=== PATIENT | male | born 2000 | race Two or more races ===

== ENCOUNTER 2022-12-04 14:54 | Outpatient (AMB) | payer OTHER, SELFPAY ==
--- NOTE | 2022-12-04 14:56 | A.OFFPC_ITS ---
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 Accompanied by: Mother Allergies No Known Allergies Allergy (Verified 12/04/22 15:01) Tobacco use date assessed: 12/04/22 Dental Screening Dental Screen Date: 12/04/22 Did you have a dental visit in the last 12 months?: Yes Did you have a dental problem in the last 6 months where you did not have access to dental care?: No Was dental information given to patient?: Patient has dentist HPI 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 Pt uses ibuprofen and ice/heat for relief. Hypersomnolence L3 region back pain. B/L shoulder pain PMHx: Back pain, knee pain, Rib pain SurgHx: No surgeries FHx: Dad: HTN, HLD. Mom: Healthy. Sister: DM. SocHx: No cigarettes. EtOH none. MJ daily. No other drugs. PFSH Surgical History (Updated 12/04/22 @ 15:11 by John Eid CMA) No pertinent past surgical history Family History (Updated 12/04/22 @ 15:17 by John Eid CMA) Father High blood pressure High cholesterol Social History Housing: House Alcohol intake: never Patient Tobacco Use Status: Never used Tobacco e-Cigarette/Vaping Use: Never Used Substance Use Type: Marijuana service: No Current occupational status: unemployed Current occupational exposures/hazards: No Cognitive needs: No Hearing needs: No Vision needs: No Questionnaire PHQ-9 Over the last 2 weeks, how often have you been bothered by any of the following problems? 1. Little interest or pleasure in doing things: several days 2. Feeling down, depressed, or hopeless: several days 3. Trouble falling or staying asleep, or sleeping too much: several days 4. Feeling tired or having little energy: not at all 5. Poor appetite or overeating: several days 6. Feeling bad about yourself - or that you are a failure or have let yourself or your family down: not at all 7. Trouble concentrating on things, such as reading the newspaper or watching television: not at all 8. Moving or speaking so slowly that other people could have noticed. Or the opposite - being so fidgety or restless that you have been moving around a lot more than usual: several days 9. Thoughts that you would be better off or of hurting yourself in some way: not at all Total score: 5 08317 - PHQ-9 Billing: Yes Source: Developed by Drs. Noe Fernando, Siena Granados, Gregory Pierson and colleagues, with an educational lacy from [employer]. Thrive Questionnaire Date Thrive assessed: 12/04/22 I am a: Patient What is your living situation today?: I have a steady place to live Within the past 12 months, did the food you bought not last and you didn't have the money to get more?: Never true Within the past 12 months, did you worry whether your food would run out before you got money to buy more?: Never true Do you have trouble paying for medicines?: No Do you have trouble getting transportation to medical appointments?: No Do you have trouble paying your heating and electricity bill?: No Do you have trouble taking care of your child, family member or friend?: No Do you have trouble with day-to-day activities such as bathing, preparing meals, shopping, managing finances, etc.?: No Are you currently unemployed and looking for a job?: Yes Are you interested in more education?: No Please select the resources that you would like help with: None Currently or been in a relationship where the following occur: no concerns reported SAM-7 AMB Questionnaire SAM-7 Date SAM - 7 assessed: 12/04/22 Feeling nervous, anxious, or on edge: 1 = Several days Not being able to stop or control worryin = Several days Worrying too much about different things: 1 = Several days Trouble relaxin = Nearly every day Being so restless that it is hard to sit still: 1 = Several days Becoming easily annoyed or irritable: 3 = Nearly every day Feeling afraid as if something awful might happen: 3 = Nearly every day Total SAM-7 score (0-4 normal; 5-9 mild; 10-14 moderate; 15-21 severe): 13 Source: Developed by Drs. Noe Fernando, Siena Granados, Gregory Pierson and colleagues, with an educational lacy from [employer]. SAM-7 Assessment Billing ASM-7 Assessment Tool: SAM-7 Assessment 48699 Review of Systems Const Denies chills, Denies fatigue, Denies fever(s), Denies headache(s) and Denies weakness ENT Denies dizziness and Denies headache(s) Card Denies chest pain, Denies lightheadedness, Denies dyspnea and Denies other (Palpitations) Resp Denies cough, Denies dyspnea, Denies wheezing and Denies other ( shortness of breath) Musc Details: L rib pain B/L shoulder pain Reports back pain, Denies numbness and Denies tingling Neuro Denies dizziness, Denies headache(s), Denies numbness, Denies tingling, Denies paresthesias and Denies weakness Psych Denies anxiety and Denies depression Endo Denies fatigue Aller/Immun Denies wheezing Physical exam (Primary Care) Vital Signs: Last Vital Signs Pulse 68 12/04/22 15:00 BP 118/62 12/04/22 15:00 Pulse Ox 99 12/04/22 15:00 BMI result Body Mass Index 29.7 Tobacco/Smoking Status: Tobacco use Status Tobacco use date assessed 12/04/22 12/04/22 15:05 Patient Tobacco Use Status Never used Tobacco 12/04/22 15:05 e-Cigarette/Vaping Use Never Used 12/04/22 15:05 PHQ-9: PHQ-9 Score PHQ-9: Total score 5 12/04/22 15:46 Thrive Assessment: Date of Thrive Assessment Date Thrive assessed 12/04/22 12/04/22 15:19 Currently or been in a relationship where the following occur: no concerns reported Const General: no acute distress and well developed Nutritional Appearance: well nourished Orientation/consciousness: patient oriented x3 HENMT Head: Yes normocephalic and Yes atraumatic Eyes General: appearance normal, both eyes and all related structures Pupils: Equal, round and reactive pupils present EOM: EOMs intact bilaterally Resp Effort & Inspection: normal respiratory effort Auscultation: clear to auscultation bilaterally Cardio Rate: regular rate Rhythm: regular rhythm Heart sounds: S1 normal heart sound present, S2 normal heart sound present, no gallops, no murmurs and no rubs Neuro General: patient oriented x3 and gait normal Cranial nerves: Yes Equal, round and reactive pupils present Psych Affect: normal affect Assessment and Plan Assessment & Plan (1) Back pain: Code(s): M54.9 - Dorsalgia, unspecified Plan: Midback including left subscapularis and low back pain. Use ice/heat and meloxicam Start physical therapy (2) Rib pain: Code(s): R07.81 - Pleurodynia Plan: Left lower rib pain Likely recurrent muscle strain Can use ice and heat and NSAIDs (3) Hypersomnolence: Code(s): G47.10 - Hypersomnia, unspecified Plan: Referred to Sleep Medicine (4) Knee pain: Code(s): M25.569 - Pain in unspecified knee Plan: Bilateral patellar pain and infrapatellar pain and swelling with some crepitus Likely patellar tendinitis Use ice and NSAIDs. Start physical therapy (5) Laboratory exam ordered as part of routine general medical examination: Code(s): Z00.00 - Encounter for general adult medical examination without abnormal findings Plan: Check labs (6) Bilateral shoulder pain: Code(s): M25.511 - Pain in right shoulder; M25.512 - Pain in left shoulder Plan Multiple joints with pain. Check inflammatory markers Orders: Orders PT Evaluation and Treatment Today M25.511 - Pain in right shoulder, M25.512 - Pain in left shoulder, M25.569 - Pain in unspecified knee, M54.9 - Dorsalgia, unspecified Comprehensive [place]. Panel Fast Today M54.9 - Dorsalgia, unspecified, Z00.00 - Encounter for general adult medical examination without abnormal findings Complete Blood Count Auto Diff Today M54.9 - Dorsalgia, unspecified, Z00.00 - Encounter for general adult medical examination without abnormal findings Lipid Panel Today M54.9 - Dorsalgia, unspecified, Z00.00 - Encounter for general adult medical examination without abnormal findings TSH reflex Free T4 Today M54.9 - Dorsalgia, unspecified, Z00.00 - Encounter for general adult medical examination without abnormal findings UA and rflx microscopic Today M54.9 - Dorsalgia, unspecified, Z00.00 - Encounter for general adult medical examination without abnormal findings CRP High Sensitivity Today M54.9 - Dorsalgia, unspecified Rheumatoid Factor Today M54.9 - Dorsalgia, unspecified Erythrocyte Sedimentation Rate Today M54.9 - Dorsalgia, unspecified Referrals Sleep Medicine Referral G47.10 - Hypersomnia, unspecified Medications: New meloxicam 15 mg PO DAILY 30 tabs 2RF 30 days Coding Level of Care Code New Pt Level 4 (37001) Diagnoses Back pain M54.9 Rib pain R07.81 Hypersomnolence G47.10 Knee pain M25.569 Laboratory exam ordered as part of routine general medical examination Z00.00 Bilateral shoulder pain M25.511; M25.512 Additional Codes SAM-7 Assessment Billing - SAM-7 Assessment Tool: SAM-7 Assessment 88730 ([id number])
[2022-12-04 15:00] VITALS: BP 118/62; PULSE 68; O2SAT 99; BMI 29.7
== END 2022-12-04 16:09 | disposition home or self-care (01) ==
PROVIDERS: Visit Provider Family Medicine
DX: M54.9 Dorsalgia, unspecified (principal); R07.81 Pleurodynia; G47.10 Hypersomnia, unspecified; M25.569 Pain in unspecified knee; Z00.00 Encounter for general adult medical examination without abnormal findings; M25.511 Pain in right shoulder; M25.512 Pain in left shoulder
CPT/HCPCS: 99204

== ENCOUNTER 2023-02-21 08:09 | Outpatient (AMB) | payer OTHER, SELFPAY ==
--- NOTE | 2023-02-21 08:25 | A.OFFVIS_ITS ---
Intake Vital Signs 02/21/23 08:28 Height 5 ft 9.5 in Weight 202 lb 4 oz BMI 29.4 BP 102/52 L Blood Pressure Location Rt brachial Position Sitting Pulse 57 Pulse Source Pulse Oximeter Pulse Oximetry (%) 99 Oxygen Delivery Method Room Air Intake Visit Reasons: INP-Hypersomnia - LVM Intake Note: NPV for Hypersomnia Client Services Assistant Required: No Allergies No Known Allergies Allergy (Verified 02/21/23 08:26) HPI HPI Comments 2 History of Present Illness Details 22 y/o male patient presents for new in- person visit for sleep consultation. Pt reports hypersomnia. He sleeps 8-9 hrs at night but still tired during the day and takes a nap 4-5 hrs a day. Pt states that he stays up until late, midnight to 1 am and then sleep until 8-9 am. He usually takes a nap 3-4 pm for 4-5 hrs a day. Denies difficulty staying sleep. He plays basketball in the morning, and playing video after nap until late night. Sleep questionnaire: Have you ever been diagnosed with a sleep disorder? No. Have you ever had a sleep study in the past? No. Have you ever been treated for a sleep disorder? No. Do you take medications for a sleep disorder? No, tried melatonin 5 mg, it helped a little bit to sleep earlier. Do you snore? Yes. Do you wake up gasping at night? No. Do you have episodes of apneas? No. If yes, are they witnessed? No. Do you have episodes of nocturnal chest pain or dyspnea? No. Do you have difficulty initiating sleep? Yes. Do you have difficulty maintaining sleep? Yes. Do you wake up tired? Yes. Do you have headaches upon awakening? No. Do you wake up with dry mouth or throat? Yes, sometimes. Do you have GERD? No. Do you have nocturia? Yes. Do you have nocturnal leg cramps? Yes. Do you have symptoms of restless legs? Yes. Do you act out your dreams? No. Sleep hygiene questionnaire: What is your usual sleep routine? Usual bedtime is at 9-9:30 pm; Usual wake up time is at 8-9 hrs. . Do you take naps? 3-4 pm take Is your sleep environment cool, dark, and quiet? Yes. Do you exercise? Yes, playing basketball. Do you take caffeine or other stimulants? Yes, ice coffee around 1 pm. Do you use electronics in bed? Yes, video game and playing with phone. What is your work schedule? N/A. Hypersomnolence questionnaire: Do you have daytime tiredness or fatigue? Yes. Do you easily fall asleep when inactive? No. Have you ever had episodes of sudden weakness? No. Have you ever had episodes of sudden weakness associated with strong emotions? No. PFSH Surgical History (Updated 12/04/22 @ 15:11 by John Eid CMA) No pertinent past surgical history Family History (Updated 12/04/22 @ 15:17 by John Eid CMA) Father High blood pressure High cholesterol Social History (Updated 02/21/23 @ 08:27 by Angeline Vincent [facility]) Housing: House Alcohol intake: never Patient Tobacco Use Status: Never used Tobacco e-Cigarette/Vaping Use: Never Used Substance Use Type: Marijuana service: No Current occupational status: unemployed Current occupational exposures/hazards: No Cognitive needs: No Hearing needs: No Vision needs: No Review of Systems Const All systems reviewed & are unremarkable except as noted in HPI and below Physical Exam Vital Signs: Last Vital Signs Pulse 57 02/21/23 08:28 BP 102/52 L 02/21/23 08:28 Pulse Ox 99 02/21/23 08:28 Oxygen Delivery Method Room Air 02/21/23 08:28 BMI result Body Mass Index 29.4 Const General: cooperative and healthy appearing Nutritional Appearance: overweight Orientation/consciousness: patient oriented x3 Neck Neck: Yes normal visual inspection and Yes full ROM Resp Effort & Inspection: normal respiratory effort and able to speak in complete sentences Neuro General: patient oriented x3 and gait normal Motor exam (neuro): 5/5 motor strength present throughout, Pronator motor function not present and no tremor noted Psych Appearance: grossly normal Mental Status: mental status grossly normal Speech and movement: Normal speech and movement present Affect: normal affect Attitude: cooperative Assessment & Plan Assessment & Plan (1) Snoring: Code(s): R06.83 - Snoring (2) Hypersomnolence: Code(s): G47.10 - Hypersomnia, unspecified Plan Pt is advised to undergo home sleep study to assess for sleep apnea. Will f/u with pt after study to discuss results and appropriate treatment option s. Sleep hygiene education provided. Advised patient to limit playing video game before bedtime. Advised patient to limit daytime nap, and try to increase daily activities. Advised patient to write sleep log. Pt to call with any worsening concerns or questions. Orders: Orders RT home sleep study 02/21/23 G47.10 - Hypersomnia, unspecified, R06.83 - Snoring Medications: New melatonin 3 mg PO BEDTIME 30 days PRN 30 tabs 3RF sleep Coding Level of Care Code New Pt Level 3 (14758) Diagnoses Snoring R06.83 Hypersomnolence G47.10
[2023-02-21 08:28] VITALS: BP 102/52; PULSE 57; O2SAT 99; BMI 29.4
== END 2023-02-21 08:54 | disposition home or self-care (01) ==
PROVIDERS: PCP Family Medicine; Visit Provider Nurse Practitioner Family
DX: R06.83 Snoring (principal); G47.10 Hypersomnia, unspecified
CPT/HCPCS: 99203

== ENCOUNTER → 2023-02-21 08:09 | Outpatient (BNVA) | payer OTHER, SELFPAY | PROVIDERS: PCP Family Medicine; Visit Provider Nurse Practitioner Family ==

== ENCOUNTER 2023-09-04 11:00 | Outpatient (RCR) | payer OTHER, SELFPAY ==
--- NOTE | 2023-08-30 12:39 | MHC.PT.EP ---
[facility] [place] Office [place] Office [place] Office [address] Henny Brian [address] [phone] F: [phone] F: [phone] F: [phone] F: [phone] Physical Therapy Plan of Care Date of Evaluation: 08/30/23 Date of Surgery: Diagnosis: dorsalgia, bilateral knee pain, LEFT shoulder/scapular pain (RS) Assessment: Patient is a pleasant 23 y.o. male who is referred to PT by Dr. Wilfred Kelley MD, with Dx of dorsalgia, bilateral knee pain, LEFT shoulder/scapular pain. He presents with muscle imbalances in hips and low back and L shoulder girdle compared to R. Patient impairments include poor posture, poor body mechanics, pes planus, limited ROM, weakness hips, mid back. Patient current functional limitations are prolonged standing, jumping, prolonged sitting, stair use. Patient will benefit from skilled PT to address aforementioned impairments and functional limitations to meet established goals. Frequency and Duration: The patient will be seen 1x/week for 4 weeks Short Term Goals: 2 weeks Patient demonstrates consistency and independence with HEP to self manage symptoms. 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 Patient presents with increased lumbar spine extension 30 degrees to be able to perform prolonged standing for work tasks. Treatment Plan: Modalities to reduce pain, spasms and effusion. Manual therapy to restore motion and function. Therapeutic exercise to improve strength and flexibility. Neuromuscular re-education for posture and balance. Therapeutic activities to return to functional activities of daily living. Electronically signed by: Francisco Cordero, PT, DPT Please sign and return to therapist. Thank you for your referral.
--- NOTE | 2023-10-15 10:48 | MHC.PT.DC ---
[facility] [place] Office [place] Office [place] Office [address] Henny Brian [address] [phone] F: [phone] F: [phone] F: [phone] F: [phone] Physical Therapy Discharge Report Diagnosis: dorsalgia, bilateral knee pain, LEFT shoulder/scapular pain (RS) Date of Surgery: Date of Evaluation: 08/30/23 Date of Discharge: 10/15/23 Treatments to Date: 2 Cancellations to Date: 1 No Shows to Date: 2 Discharge Status: Independent with HEP Visit Non-compliance Discharge Summary: Job was only seen for one visit after evaluation, difficulty determining effectiveness of PT interventions on patient condition due to limited visits. He has HEP. He is discharged for non compliance with attendance. Electronically signed by: Francisco Cordero, PT, DPT Please sign and return to therapist. Thank you for your referral.
== END 2023-10-15 10:49 | disposition home or self-care (01) ==
LOC: HO.PT 11:00
PROVIDERS: PCP Family Medicine; Visit Provider Family Medicine
DX: M54.9 Dorsalgia, unspecified (principal); M25.561 Pain in right knee; M25.562 Pain in left knee; M25.511 Pain in right shoulder; M25.512 Pain in left shoulder
CPT/HCPCS: 97110; 97161

== ENCOUNTER 2023-11-15 13:38 | Outpatient (AMB) | payer OTHER, SELFPAY ==
[2023-11-15 13:49] VITALS: BP 108/68; PULSE 58; RESP 14; TEMP 36.1; O2SAT 98; BMI 29.3
--- NOTE | 2023-11-15 13:49 | A.OFFPC_ITS ---
Vital Signs 11/15/23 13:49 Height 5 ft 9.5 in Weight 201 lb 4 oz BMI 29.3 BP 108/68 Blood Pressure Location Rt brachial Position Sitting Respiration 14 Pulse 58 Pulse Source Pulse Oximeter Temp 97 F Temp Source Temporal Artery Scan Pulse Oximetry (%) 98 Oxygen Delivery Method Room Air Intake Visit Reasons: Disability F/U Intake Note: Patint needs a letter for a court hearing on 01/16/24. 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 Pt notes he has a hearing to assess his disability. Has had complaints of back pain, knee pain, rib pain in the past. He notes he has been to physical therapy 4-5 times which he states did help and his sleep has improved. Had referred him to sleep medicine - he had went once and they had recommended a sleep study as they mentioned he might have sleep apnea. He was unable to f/u with this however due to work. He works at [employer] and has to stand for long periods of time. He notes standing makes his knees worse. [facility] Medical History No pertinent past medical history Surgical History No pertinent past surgical history Family History Father High blood pressure High cholesterol Social History Housing: House Alcohol intake: never Patient Tobacco Use Status: Never used Tobacco e-Cigarette/Vaping Use: Never Used Substance Use Type: Marijuana service: No Current occupational status: employed Current occupation: [employer] Current occupational exposures/hazards: No Cognitive needs: No Hearing needs: No Vision needs: No Questionnaire Thrive Questionnaire Date Thrive assessed: 12/04/22 SAM-7 AMB Questionnaire SAM-7 Date SAM - 7 assessed: 12/04/22 Source: Developed by Drs. Noe Fernando, Siena Granados, Gregory Pierson and colleagues, with an educational lacy from [employer]. Review of Systems Const Denies chills, Denies fatigue, Denies fever(s), Denies headache(s) and Denies weakness ENT Denies dizziness and Denies headache(s) Card Denies dyspnea Resp Denies cough, Denies dyspnea, Denies wheezing and Denies other (shortness of breath) Musc Details: Knee pain Foot pain Reports back pain, Denies numbness and Denies tingling Neuro Denies dizziness, Denies headache(s), Denies numbness, Denies tingling and Denie s weakness Psych Denies anxiety and Denies depression Endo Denies fatigue Aller/Immun Denies wheezing Physical exam (Primary Care) Vital Signs: Last Vital Signs Temp 97 F 11/15/23 13:49 Pulse 58 11/15/23 13:49 Resp 14 11/15/23 13:49 BP 108/68 11/15/23 13:49 Pulse Ox 98 11/15/23 13:49 Oxygen Delivery Method Room Air 11/15/23 13:49 BMI result Body Mass Index 29.3 Tobacco/Smoking Status: Tobacco use Status Tobacco use date assessed 11/15/23 11/15/23 13:57 Patient Tobacco Use Status Never used Tobacco 11/15/23 13:57 e-Cigarette/Vaping Use Never Used 11/15/23 13:57 Thrive Assessment: Date of Thrive Assessment Date Thrive assessed 12/04/22 11/15/23 13:57 Const General: well developed; No acute distress Nutritional Appearance: well nourished Orientation/consciousness: patient oriented x3 HENMT Head: Yes normocephalic and Yes atraumatic Eyes General: appearance normal, both eyes and all related structures Pupils: Equal, round and reactive pupils present EOM: EOMs intact bilaterally Resp Effort & Inspection: normal respiratory effort Neuro General: patient oriented x3 and gait normal Cranial nerves: Yes Equal, round and reactive pupils present Psych Affect: normal affect Assessment and Plan Assessment & Plan (1) Back pain: Code(s): M54.9 - Dorsalgia, unspecified Plan: Patient?has?ongoing?back?and?knee?pain?as?well?as?left?lateral?ankle?pain. Currently?not?in?any?acute?distress.??He?says?this?is?exacerbated?when?he?is?sta nding?or?on?his?feet?all?day?at?work. Had?seen?patient?regarding?these?musculoskeletal?complaints?at?last?visit?which? was?approximately?a?year?ago.??Had?referred?him?to?physical?therapy?which?he?att ended?for?several?sessions?and?did?note?some?improvements. Had?also?ordered?laboratory?workup?including?inflammatory?markers?and?rheumatoid ?factor?but?patient?had?not?gotten?these?drawn.??I?have?encouraged?him?to?get?la bs?drawn?and?I?am?also?ordering?x- rays?of?the?above?affected?joints.??Also?will?have?him?resume?physical?therapy. May?need?referrals?to?a?specialist?or?further?workup. Patient?says?that?he?has?a?court?hearing?regar ding?disability.??Currently?unable?to?make?a?determination?as?he?has?not?yet?com pleted?workup?as?recommended?above. Will?follow-up?with?him?in?3-4?weeks?and?continue?evaluation. Can?trial?naproxen?twice?a?day?for?pain (2) Knee pain: Code(s): M25.569 - Pain in unspecified knee Plan: As?above (3) Foot pain: Code(s): M79.673 - Pain in unspecified foot Plan: Left?foot?and?ankle?pain Workup?as?above (4) Hypersomnolence: Code(s): G47.10 - Hypersomnia, unspecified Plan: Had?seen?patient?regarding?sleep?apnea?and?referred?him?to?Sleep?Medicine?last?y ear. A?sleep?study?was?ordered?but?he?has?not?followed?through?on?this.??Referring?hi m?back?to?Sleep?Medicine. Orders: Orders Comprehensive [place]. Panel Fast Today Z00.00 - Encounter for general adult medical examination without abnormal findings TSH reflex Free T4 Today Z00.00 - Encounter for general adult medical examination without abnormal findings CT NG by PCR Today Z11.3 - Encounter for screening for infections with a predominantly sexual mode of transmission Hepatitis B,C Profile Today Z11.3 - Encounter for screening for infections with a predominantly sexual mode of transmission Syphilis Screen Today Z11.3 - Encounter for screening for infections with a predominantly sexual mode of transmission Rheumatoid Factor Today M54.9 - Dorsalgia, unspecified CRP High Sensitivity Today M54.9 - Dorsalgia, unspecified Lyme IgG/IgM w/reflex to WB Today M54.9 - Dorsalgia, unspecified XR foot LT 2V Today M25.572 - Pain in left ankle and joints of left foot XR knee LT 2V Today M25.561 - Pain in right knee, M25.562 - Pain in left knee Complete Blood Count Auto Diff Today Z00.00 - Encounter for general adult medical examination without abnormal findings Lipid Panel Today Z00.00 - Encounter for general adult medical examination without abnormal findings Microalbumin, Random (w Creat) Today I10 - Essential (primary) hypertension UA and rflx microscopic Today Z00.00 - Encounter for general adult medical examination without abnormal findings HIV Ab/Ag Today Z11.3 - Encounter for screening for infections with a predominantly sexual mode of transmission Erythrocyte Sedimentation Rate Today M54.9 - Dorsalgia, unspecified PT Evaluation and Treatment Today M25.561 - Pain in right knee, M25.562 - Pain in left knee, M25.572 - Pain in left ankle and joints of left foot, M54.9 - Dorsalgia, unspecified XR ankle LT 2V Today M25.572 - Pain in left ankle and joints of left foot XR knee RT 2V Today M25.561 - Pain in right knee, M25.562 - Pain in left knee XR lumbar spine 2-3V Today M54.9 - Dorsalgia, unspecified Referrals Sleep Medicine Referral G47.10 - Hypersomnia, unspecified Medications: New naproxen 500 mg PO BID 30 days PRN 60 tabs 1RF pain Coding Level of Care Code Est Pt Level 4 (87362) Diagnoses Back pain M54.9 Knee pain M25.569 Foot pain M79.673 Hypersomnolence G47.10
== END 2023-11-15 14:54 | disposition home or self-care (01) ==
PROVIDERS: PCP Family Medicine; Visit Provider Family Medicine
DX: M54.9 Dorsalgia, unspecified (principal); M25.569 Pain in unspecified knee; M79.673 Pain in unspecified foot; G47.10 Hypersomnia, unspecified
CPT/HCPCS: 99214

== ENCOUNTER 2023-11-19 10:18 | Outpatient (REF) | payer OTHER, SELFPAY ==
[2023-11-19 10:35] LABS: MANUAL DIFF FLAG NO
[2023-11-19 11:38] LABS: Basophils Absolute Auto 0.1 X10*3/uL (0.0-0.2); Basophils Percent Auto 0.8 % (0-2); Eosinophils Absolute Auto 0.1 X10*3/uL (0.0-0.4); Eosinophils Percent Auto 1.7 % (0-4); Hemoglobin 14.5 g/dl (14.0-18.0); Imm Gran Abs Auto 0.02 X10*3/uL (0.00-0.03); Imm Gran Pct Auto 0.3 % (0.0-0.4); Lymphocytes Absolute Auto 2.5 X10*3/uL (1.2-4.9); Lymphocytes Percent Auto 36.8 % (20-40); Mean Corpuscular Hemoglobin 28.7 pg (27.0-33.0); Mean Corpuscular Volume 87.1 fL (80.0-98.0); Mean Platelet Volume 9.1 fL (9.4-12.4); Monocytes Absolute Auto 0.6 X10*3/uL (0.1-1.2); Neutrophils Absolute Auto 3.4 x10*3/uL (2.0-8.3); Neutrophils Percent Auto 51.4 % (45-73); Platelet Count 313 X10*3/uL (160-400); Red Blood Count 5.05 X10*6/uL (4.60-5.80); Red Cell Distribution Width 13.2 % (11.0-16.0); White Blood Count 6.7 X10*3/uL (4.8-10.8)
[2023-11-19 11:57] LABS: Rheumatoid Factor < 13.0 IU/mL (<15.0)
[2023-11-19 12:18] LABS: Erythrocyte Sedimentation Rate 2 MM/HR (0-15)
[2023-11-19 12:29] LABS: Alanine Aminotransferase 14 U/L (0-40); Albumin Level 4.7 g/dL (3.5-5.0); Alkaline Phosphatase 61 U/L (39-117); Anion Gap 12 (12-20); Aspartate Amino Transferase 16 U/L (5-37); Bilirubin Total 0.7 mg/dL (0.0-1.0); Blood Urea Nitrogen 13 mg/dL (9-16); Carbon Dioxide 27 mmol/L (22-29); Chloride 105 mmol/L (96-108); Cholesterol 195 mg/dL (<200); Estimated Glomerular Filt Rate > 60; Glucose Fasting 94 mg/dL (60-99); HDL Cholesterol 61 mg/dL (>40); LDL Cholesterol Calculated 123 mg/dL (<100); Potassium 3.8 mmol/L (3.3-5.1); Sodium 140 mmol/L (135-145); Total Protein 7.3 g/dL (6.5-8.0); Triglycerides 57 mg/dL (<150)
[2023-11-19 12:34] LABS: Syphilis Screen Nonreactive (Nonreactive)
[2023-11-19 12:36] LABS: HBS Num1 0.51 mIU/mL (0-7.99); HBsAGNum1 0.24 S/CO (0.00-0.99); HIV AB/AG Nonreactive (Nonreactive); HIV Num 1 0.06 S/CO (0.00-0.99); Hepatitis B Core Antibody Nonreactive (Nonreactive); Hepatitis B Surface Antigen Negative (Negative); ~HepC Num1 0.12 S/CO (0.00-0.79); ~Hepatitis B Surface Antibody NONREACTIVE (Nonreactive); ~Hepatitis C Antibody Nonreactive (Nonreactive)
[2023-11-19 13:21] LABS: Appearance Urine Clear; Color Urine Yellow; Glucose Urine UA Negative (Negative); Leukocyte Esterase Urine Negative (Negative); Nitrite Urine Negative (Negative); PH 6.5 (5.0-9.0); Urine Blood Negative (Negative); Urine Ketones Negative (Negative); Urine Protein Negative (Neg-Trace)
[2023-11-19 14:23] LABS: Creatinine Urine 194.57 mg/dL
[2023-11-19 14:27] LABS: CT PCR NOT DETECTED (Not Detect.); NG PCR NOT DETECTED (Not Detect.)
[2023-11-20 09:03] LABS: CRP High Sensitivity <0.2 mg/L
[2023-11-20 11:20] LABS: Lyme Abs Screen <0.90 index
== END 2023-11-19 10:19 | disposition home or self-care (01) ==
LOC: HO.LAB 10:18
PROVIDERS: PCP Family Medicine; Visit Provider Family Medicine
DX: Z00.00 Encounter for general adult medical examination without abnormal findings (principal); G47.10 Hypersomnia, unspecified; M54.9 Dorsalgia, unspecified; I10 Essential (primary) hypertension; Z11.3 Encounter for screening for infections with a predominantly sexual mode of transmission
CPT/HCPCS: 80053; 80061; 81003; 82043; 82570; 84443; 85025; 85652; 86141; 86431; 86617; 86618; 86704; 86706; 86780; 86803; 87340; 87389; 87491; 87591

== ENCOUNTER 2023-11-20 13:38 | Outpatient (AMB) | payer OTHER, SELFPAY ==
--- NOTE | 2023-11-20 13:48 | MHC.OFFVIS ---
Vital Signs 11/20/23 13:49 Height 5 ft 9.5 in Weight 201 lb BMI 29.3 Intake Visit Reasons: Follow Up- Intake Note: Patient presents for follow up hypersomnolence. patient states he's been better sleeping less and less tired Allergies No Known Allergies Allergy (Verified 11/20/23 13:56) Medication List - Last Reconciled 11/20/23 by CORETTA Robles melatonin 3 mg PO BEDTIME PRN 30 days naproxen 500 mg PO BID PRN 30 days HPI Comments Details: 23-yr-old male presents for f/u visit of hypersomnia. Pt was last seen by Barak Sethi NP. Pt denies any significant interval medical changes. He has not done the HST ordered at his last appt. Pt states he is sleeping better. He typically is sleeping from 9pm to 9am, some days may wake up earlier for work. May still need to take a nap on days where he has slept 12 hrs. He notes he has always been more sleepy- could fall asleep in class when in high school. His brother also sleeps a lot. He can dream during a 20 minute nap. He has been told he snores and talks in his sleep. He can feel drained after having strong emotions, but denies weakness or syncope. He is working at [employer]. Plays basketball for exercise. [facility] Medical History No pertinent past medical history Surgical History No pertinent past surgical history Family History Father High blood pressure High cholesterol Social History Housing: House Alcohol intake: never Patient Tobacco Use Status: Never used Tobacco e-Cigarette/Vaping Use: Never Used Substance Use Type: Marijuana service: No Current occupational status: employed Current occupation: [employer] Current occupational exposures/hazards: No Cognitive needs: No Hearing needs: No Vision needs: No Physical Exam Vital Signs: BMI result Body Mass Index 29.3 Const General: cooperative and no acute distress Orientation/consciousness: patient oriented x3 Resp Effort & Inspection: normal respiratory effort and able to speak in complete sentences Neuro General: patient oriented x3 Cranial nerves: Yes CN's II-XII intact bilaterally Cognition (Neuro): normal cognition Psych Appearance: grossly normal Mental Status: mental status grossly normal Speech and movement: Normal speech and movement present Affect: normal affect Attitude: cooperative Assessment & Plan Assessment & Plan (1) Hypersomnolence: Code(s): G47.10 - Hypersomnia, unspecified Category: Medical (2) Snoring: Code(s): R06.83 - Snoring Category: Medical Plan Reviewed recent labs- CBC, CMP, TSH, ESR, CRP- NL. Pt again advised to undergo HST to assess for sleep apnea. If HST is inconclusive, consider in-lab PSG w/ MSLT. f/u upon review of above and in 6 months or sooner. Orders: Orders RT home sleep study Today G47.10 - Hypersomnia, unspecified, R06.83 - Snoring Coding Level of Care Code Est Pt Level 3 (80474) Diagnoses Hypersomnolence G47.10 Snoring R06.83
[2023-11-20 13:49] VITALS: BMI 29.3
== END 2023-11-20 14:48 | disposition home or self-care (01) ==
PROVIDERS: PCP Family Medicine; Visit Provider Nurse Practitioner Family
DX: G47.10 Hypersomnia, unspecified (principal); R06.83 Snoring
CPT/HCPCS: 99213

== ENCOUNTER → 2023-11-20 13:38 | Outpatient (BNVA) | payer OTHER, SELFPAY | PROVIDERS: PCP Family Medicine; Visit Provider Nurse Practitioner Family | DX: G47.10 Hypersomnia, unspecified (principal); R06.83 Snoring | CPT/HCPCS: 99212 ==

== ENCOUNTER 2023-12-18 15:25 | Outpatient (AMB) | payer OTHER, SELFPAY ==
--- NOTE | 2023-12-18 15:40 | A.OFFPC_ITS ---
Vital Signs 12/18/23 15:43 Height 5 ft 11 in Weight 202 lb 2 oz BMI 28.2 BP 100/60 Blood Pressure Location Rt brachial Position Sitting Respiration 12 Pulse 49 L Pulse Source Pulse Oximeter Temp 97.7 F Temp Source Tympanic Pulse Oximetry (%) 99 Oxygen Delivery Method Room Air Intake Visit Reasons: back pain, bilateral knee pain & left ankle pain Intake Note: back pain and knee pain due to prolong standing at work lft ankle pain due to a sprain playing basketball Allergies No Known Allergies Allergy (Verified 12/18/23 15:42) Tobacco use date assessed: 11/15/23 Dental Screening Dental Screen Date: 11/15/23 HPI back pain, bilateral knee pain & left ankle pain HPI Details 23 y/o male presents today to f/u back p ain, bilateral knee pain & L ankle pain. Has trialed physical therapy with no relief. Labs drawn 11/19/23. Reviewed labs with pt. Triglycerides 57. TC 195. LDL 123. HDL 61. Pt reports difficulty concentrating and notes he has a hearing coming up to assess his disability. HPI Comments History of Present Illness Details Documentation assistance for Wilfred Kelley MD, was provided by Daniel Higgins,? Sewing Machine Maintenance Mechanic on 12/18/2023 at 4:01 PM EST. I, Dr. Kelley, have read, observed, and verified documentation. [facility] Medical History No pertinent past medical history Surgical History No pertinent past surgical history Family History Father High blood pressure High cholesterol Social History Housing: House Alcohol intake: never Patient Tobacco Use Status: Never used Tobacco e-Cigarette/Vaping Use: Never Used Substance Use Type: Marijuana service: No Current occupational status: employed Current occupation: [employer] Current occupational exposures/hazards: No Cognitive needs: No Hearing needs: No Vision needs: No Questionnaire Thrive Questionnaire Date Thrive assessed: 12/04/22 SAM-7 AMB Questionnaire SAM-7 Date SAM - 7 assessed: 12/04/22 Source: Developed by Drs. Noe Fernando, Siena Granados, Gregory Pierson and colleagues, with an educational lacy from [employer]. Review of Systems Const Denies chills, Denies fatigue, Denies fever(s), Denies headache(s) and Denies weakness ENT Denies dizziness and Denies headache(s) Card Denies dyspnea Resp Denies cough, Denies dyspnea, Denies wheezing and Denies other (shortness of breath) Musc Details: Bilateral knee pain L ankle pain Reports back pain, Denies numbness and Denies tingling Neuro Denies dizziness, Denies headache(s), Denies numbness, Denies tingling and Denies weakness Psych Denies anxiety and Denies depression Endo Denies fatigue Aller/Immun Denies wheezing Physical exam (Primary Care) Vital Signs: Last Vital Signs Temp 97.7 F 12/18/23 15:43 Pulse 49 L 12/18/23 15:43 Resp 12 12/18/23 15:43 BP 100/60 12/18/23 15:43 Pulse Ox 99 12/18/23 15:43 Oxygen Delivery Method Room Air 12/18/23 15:43 BMI result Body Mass Index 28.2 Tobacco/Smoking Status: Tobacco use Status Tobacco use date assessed 11/15/23 12/18/23 15:45 Patient Tobacco Use Status Never used Tobacco 12/18/23 15:45 e-Cigarette/Vaping Use Never Used 12/18/23 15:45 Thrive Assessment: Date of Thrive Assessment Date Thrive assessed 12/04/22 12/18/23 15:45 Const General: well developed; No acute distress Nutritional Appearance: well nourished Orientation/consciousness: patient oriented x3 HENMT Head: Yes normocephalic and Yes atraumatic Eyes General: appearance normal, both eyes and all related structures Pupils: Equal, round and reactive pupils present EOM: EOMs intact bilaterally Resp Effort & Inspection: normal respiratory effort Auscultation: clear to auscultation bilaterally Cardio Rate: regular rate Rhythm: regular rhythm Heart sounds: S1 normal heart sound present, S2 normal heart sound present, no gallops, no murmurs and no rubs Neuro General: patient oriented x3 and gait normal Cranial nerves: Yes Equal, round and reactive pupils present Psych Affect: normal affect Assessment and Plan Assessment & Plan (1) Back pain: Code(s): M54.9 - Dorsalgia, unspecified Plan: Back?and?extremities/joint?pains?are?much?improved?on?naproxen. Lab?work?is?unremarkable;?no?inflammatory?or?autoimmune?marker?elevations Continue?naproxen If?worsening?or?not?fully?improving?he?can?get?x-rays?which?had?been?o rdered?and?we?can?review?them?together?but?I?suspect?that?is?not?necessary?at?th is?time. Apparently?his?mom?was?concerned?regarding?disability?and?he?had?conveyed?that?t his?was?due?to?the?above?pain? but?from?a?standpoint?of?back?and?joint?pain,?I?do?not?think?that?he?is?disabled ?at?this?time. However?he?also?says?that he?had?mistated?his?mom's?intentions/concerns and?that?the?issue?of?disability?is?regarding?difficulty?concentrating-see?below (2) Knee pain, bilateral: Code(s): M25.561 - Pain in right knee; M25.562 - Pain in left knee Plan: As?above (3) Left lateral ankle pain: Code(s): M25.572 - Pain in left ankle and joints of left foot Plan: As?above (4) Elevated LDL cholesterol level: Code(s): E78.00 - Pure hypercholesterolemia, unspecified Plan: Encouraged?a?diet?lower?in?saturated?fats?and?cholesterol (5) Difficulty concentrating: Code(s): R41.840 - Attention and concentration deficit Plan: Patient?notes?some?difficulty?concentrating He?has?not?been?worked?up?for?this His?mom?is?concerned?regarding?difficulty?concentrating?and?he?says?that?he?has? a?hearing?regarding?this?in?January. Still?unclear?as?to?what?the?hearing?is?regarding.?? I?did?let?him?know?that?from?a?physical?standpoint?I?think?that?he?is?able?to?wo rk?at?this?time. From?a?it?concentration?and?focus?standpoint,?I?explained?that?we?have?not?reall y?evaluated?this?and?th at?I?do?not?make?evaluations?for?ADHD.??I?will?make?a?referral?to?Psychiatry?and ?he?can?discuss?that?with?them. Briefly?discussed?consideration?of?medications?such?as?bupropion?but?we?will?hol d?off?on?this?and?have?him?evaluated?by?Psychiatry. Orders: Referrals Psychiatry Outpatient Consultation Service R41.840 - Attention and concentration deficit Coding Level of Care Code Est Pt Level 4 (96410) Diagnoses Back pain M54.9 Knee pain, bilateral M25.561; M25.562 Left lateral ankle pain M25.572 Elevated LDL cholesterol level E78.00 Difficulty concentrating R41.840
[2023-12-18 15:43] VITALS: BP 100/60; PULSE 49; RESP 12; TEMP 36.5; O2SAT 99; BMI 28.2
== END 2023-12-18 16:14 | disposition home or self-care (01) ==
PROVIDERS: PCP Family Medicine; Visit Provider Family Medicine
DX: M54.9 Dorsalgia, unspecified (principal); M25.561 Pain in right knee; M25.562 Pain in left knee; M25.572 Pain in left ankle and joints of left foot; E78.00 Pure hypercholesterolemia, unspecified; R41.840 Attention and concentration deficit
CPT/HCPCS: 99214

== ENCOUNTER 2023-12-21 11:24 | Outpatient (REF) | payer OTHER, SELFPAY ==
--- NOTE | ~2023-12-21 | XR_ITS ---
EXAMINATION: XR ANKLE, LEFT XR FOOT, LEFT CLINICAL INFORMATION: Left ankle and foot pain. COMPARISON: Left ankle radiographs dated 02/19/2014. TECHNIQUE: AP, oblique, and lateral views of the left ankle and foot. FINDINGS: LEFT ANKLE: No acute fracture or dislocation. The ankle mortise is maintained. Corticated ossification at the anterior aspect of the lateral malleolus, consistent with a remote, unfused avulsion injury. Mild spurring at the medial malleolus and adjacent medial talar body, which could represent spurring related to a remote ankle sprain. No talar osteochondral lesion. LEFT FOOT: No acute fracture or dislocation. No joint space narrowing or marginal osteophytes. No osseous erosion. No abnormal soft tissue calcification. XR/XR foot LT 2V IMPRESSION: LEFT ANKLE: No acute osseous abnormality. Probable remote avulsion injury at the anterior aspect of the lateral malleolus. Spurring at the medial malleolus and medial talar body, which could represent spurring related to a remote ankle sprain. LEFT FOOT: No acute osseous abnormality. Electronically signed by: Tian Fonseca MD 01/16/2024 08:59 PM EDT
--- NOTE | ~2023-12-21 | XR_ITS ---
EXAMINATION: XR KNEE, RIGHT XR KNEE, LEFT CLINICAL INFORMATION: Right and left knee pain. COMPARISON: Right knee radiographs dated 06/18/2017. TECHNIQUE: AP, lateral, and sunrise views of the right and left knee. FINDINGS: Right Knee: No fracture or dislocation. No joint space narrowing or marginal osteophytes. No osseous erosion. No joint effusion. No abnormal soft tissue calcification. Left Knee: No fracture or dislocation. No joint space narrowing or marginal osteophytes. No osseous erosion. No joint effusion. No abnormal soft tissue calcification. XR/XR knee RT 2V IMPRESSION: RIGHT KNEE: Unremarkable examination. LEFT KNEE: Unremarkable examination. Electronically signed by: Tian Fonseca MD 01/16/2024 08:59 PM EDT
--- NOTE | ~2023-12-21 | XR_ITS ---
EXAMINATION: XR ANKLE, LEFT XR FOOT, LEFT CLINICAL INFORMATION: Left ankle and foot pain. COMPARISON: Left ankle radiographs dated 02/19/2014. TECHNIQUE: AP, oblique, and lateral views of the left ankle and foot. FINDINGS: LEFT ANKLE: No acute fracture or dislocation. The ankle mortise is maintained. Corticated ossification at the anterior aspect of the lateral malleolus, consistent with a remote, unfused avulsion injury. Mild spurring at the medial malleolus and adjacent medial talar body, which could represent spurring related to a remote ankle sprain. No talar osteochondral lesion. LEFT FOOT: No acute fracture or dislocation. No joint space narrowing or marginal osteophytes. No osseous erosion. No abnormal soft tissue calcification. XR/XR ankle LT 2V IMPRESSION: LEFT ANKLE: No acute osseous abnormality. Probable remote avulsion injury at the anterior aspect of the lateral malleolus. Spurring at the medial malleolus and medial talar body, which could represent spurring related to a remote ankle sprain. LEFT FOOT: No acute osseous abnormality. Electronically signed by: Tian Fonseca MD 01/16/2024 08:59 PM EDT
--- NOTE | ~2023-12-21 | XR_ITS ---
EXAMINATION: XR LUMBOSACRAL SPINE CLINICAL INFORMATION: Back pain. COMPARISON: None available. TECHNIQUE: Three views of the lumbosacral spine. FINDINGS: The vertebral bodies and posterior elements are normal. The disc spaces are preserved and the vertebral alignment is normal. The paraspinal soft tissues are normal. XR/XR lumbar spine 2-3V IMPRESSION: Unremarkable examination. Electronically signed by: Tian Fonseca MD 01/16/2024 08:52 PM EDT
--- NOTE | ~2023-12-21 | XR_ITS ---
EXAMINATION: XR KNEE, RIGHT XR KNEE, LEFT CLINICAL INFORMATION: Right and left knee pain. COMPARISON: Right knee radiographs dated 06/18/2017. TECHNIQUE: AP, lateral, and sunrise views of the right and left knee. FINDINGS: Right Knee: No fracture or dislocation. No joint space narrowing or marginal osteophytes. No osseous erosion. No joint effusion. No abnormal soft tissue calcification. Left Knee: No fracture or dislocation. No joint space narrowing or marginal osteophytes. No osseous erosion. No joint effusion. No abnormal soft tissue calcification. XR/XR knee LT 2V IMPRESSION: RIGHT KNEE: Unremarkable examination. LEFT KNEE: Unremarkable examination. Electronically signed by: Tian Fonseca MD 01/16/2024 08:59 PM EDT
== END 2023-12-21 11:25 | disposition home or self-care (01) ==
LOC: HO.XRAY 11:24
PROVIDERS: PCP Family Medicine; Visit Provider Family Medicine
DX: M25.572 Pain in left ankle and joints of left foot (principal); M25.571 Pain in right ankle and joints of right foot; M25.561 Pain in right knee; M25.562 Pain in left knee; M54.9 Dorsalgia, unspecified
CPT/HCPCS: 72100; 73560; 73600; 73620

== ENCOUNTER 2024-04-18 03:50 | Emergency (ER) | payer OTHER, SELFPAY ==
[2024-04-18 03:57] VITALS: BP 114/60; PULSE 66; O2SAT 100; BMI 23.0
[2024-04-18 04:01] VITALS: BP 118/61; PULSE 56; RESP 16; TEMP 36.4; O2SAT 100
--- NOTE | 2024-04-18 04:01 | MHC.EDTECH ---
pt changed over into hospital gown and placed on oil field roustabout
[2024-04-18] MEDS: ondansetron HCL 4 MG/2 ML VIAL IVPUSH (04:32)
[2024-04-18] MEDS: Famotidine/PF 20 MG/2 ML VIAL IVPUSH (04:32)
[2024-04-18] MEDS: 0.9 % Sodium Chloride 1,000 ML 999 ML IV ×2 (04:32→08:35)
[2024-04-18 04:34] LABS: Basophils Percent Auto 0.5 % (0-2); Eosinophils Absolute Auto 0.2 X10*3/uL (0.0-0.4); Eosinophils Percent Auto 2.5 % (0-4); Hematocrit 37.8 % (42.0-52.0); Hemoglobin 13.1 g/dl (14.0-18.0); Imm Gran Abs Auto 0.01 X10*3/uL (0.00-0.03); Imm Gran Pct Auto 0.2 % (0.0-0.4); Lymphocytes Percent Auto 31.7 % (20-40); MANUAL DIFF FLAG NO; Mean Corpuscular HGB Conc 34.7 g/dl (31.0-36.0); Mean Corpuscular Hemoglobin 29.2 pg (27.0-33.0); Mean Corpuscular Volume 84.4 fL (80.0-98.0); Mean Platelet Volume 8.9 fL (9.4-12.4); Monocytes Absolute Auto 0.5 X10*3/uL (0.1-1.2); Neutrophils Absolute Auto 3.7 x10*3/uL (2.0-8.3); Neutrophils Percent Auto 58.1 % (45-73); Platelet Count 276 X10*3/uL (160-400); Red Blood Count 4.48 X10*6/uL (4.60-5.80); Red Cell Distribution Width 13.1 % (11.0-16.0); White Blood Count 6.4 X10*3/uL (4.8-10.8)
[2024-04-18 04:50] LABS: Alanine Aminotransferase 21 U/L (0-40); Albumin Level 4.6 g/dL (3.5-5.0); Alkaline Phosphatase 66 U/L (39-117); Anion Gap 16 (12-20); Aspartate Amino Transferase 25 U/L (5-37); Bilirubin Total 0.2 mg/dL (0.0-1.0); Blood Urea Nitrogen 6 mg/dL (9-16); Calcium 9.1 mg/dL (8.4-10.2); Carbon Dioxide 25 mmol/L (22-29); Chloride 108 mmol/L (96-108); Creatinine Clr Calc Pharmacy 145.5; Estimated Glomerular Filt Rate > 60; Ethanol 144 mg/dL; Glucose Random 96 mg/dL (60-115); Lipase 8 U/L (8-78); Magnesium 2.2 mg/dL (1.6-2.6); Potassium 3.7 mmol/L (3.3-5.1); Sodium 145 mmol/L (135-145); Total Protein 7.3 g/dL (6.5-8.0)
[2024-04-18 06:52] VITALS: PULSE 58; RESP 15
--- NOTE | 2024-04-18 06:53 | MHC.EDTECH ---
at this time this tech attempted to grab a set of vital signs however pt was sound asleep, documenting the heart rate and respiration rate
[2024-04-18 07:13] VITALS: BP 120/60; PULSE 61; RESP 18; TEMP 36.4; O2SAT 99
[2024-04-18 07:21] LABS: Appearance Urine Clear; Color Urine Yellow; Glucose Urine UA Negative (Negative); Leukocyte Esterase Urine Negative (Negative); Nitrite Urine Negative (Negative); Urine Blood Negative (Negative); Urine Ketones Negative (Negative); Urine Protein Negative (Neg-Trace)
[2024-04-18 07:30] LABS: Amphetamine Screen Urine Not Detected (Not Detect); Barbiturates, Urine Not Detected (Not Detect); Benzodiazepines Screen Urine Not Detected (Not Detect); Buprenorphine Scr Not Detected (Not Detect); Cannabinoid Screen Urine POSITIVE (Not Detect); Cocaine Screen Urine Not Detected (Not Detect); Fentanyl, urine Not Detected (Not Detect); Methadone Screen, Urine Not Detected (Not Detect); Opiate Screen Urine Not Detected (Not Detect); Oxycodone Screen Urine Not Detected (Not Detect); Phencyclidine Screen Urine Not Detected (Not Detect)
--- NOTE | 2024-04-18 07:40 | ED.ALCOHOL ---
HPI - Alcohol General Chief Complaint: ETOH/Substance Use Stated Complaint: ETOH Time Seen by Provider: 04/18/24 06:32 Source: patient, EMS, RN notes reviewed and old records reviewed Mode of arrival: EMS History of Present Illness ED Provider: Karma Hernandez PA-C HPI narrative: 23-year-old male with no significant past medical history presenting to the ED via EMS complaining of ETOH intoxication, nausea, and vomiting. States went to a few bars last night and drank an unknown amount of alcohol. Reports abdominal discomfort, repetitive nausea/vomiting and inability to tolerate p.o. Denies other illicit substance use, fall/injury or trauma, fever/chills. Reports mild symptomatic improvement since ED arrival area denies history of ETOH withdrawal/dependence seizures or hallucinations Related Data Previous Rx's ?Medication ?Instructions ?Recorded melatonin 3 mg tablet 3 mg PO BEDTIME PRN sleep 30 days 02/21/23 #30 tabs naproxen 500 mg tablet 500 mg PO BID PRN pain 30 days #60 01/17/24 tabs Allergies Allergy/AdvReac Type Severity Reaction Status Date / Time No Known Allergies Allergy Verified 04/18/24 03:59 Review of Systems Review of Systems: Yes all other systems are reviewed and are negative Constitutional: Constitutional: Reports as per [facility] Past Medical History Attestation statement: The following information was validated with the patient. Source: old records reviewed Medical History No pertinent past medical history Surgical History No pertinent past surgical history Family History Family History Father High blood pressure High cholesterol Social History Social History Housing: House Alcohol intake: current Alcohol intake frequency: a few times a month Patient Tobacco Use Status: Never used Tobacco Smoked in Last 30 Days: No e-Cigarette/Vaping Use: Never Used Use of substances other than those prescribed or required for medical reasons: No Substance Use Type: Marijuana Advance Directives: No Advance Directives Information Provided: No Do you have a plan to hurt others: No Plan service: No Current occupational status: employed Current occupation: [employer] Current occupational exposures/hazards: No Cognitive needs: No Hearing needs: No Vision needs: No Physical Exam ED Vital Signs: Vital Signs - 24 hr 04/18/24 04:01 04/18/24 06:52 04/18/24 07:13 Temperature 97.5 F 97.5 F Pulse Rate 56 58 61 Respiratory Rate 16 15 18 Blood Pressure 118/61 120/60 Pulse Oximetry 100 99 Oxygen Delivery Method Room Air Room Air 04/18/24 10:00 04/18/24 10:03 Temperature 98.0 F 98.0 F Pulse Rate 64 64 Respiratory Rate 18 18 Blood Pressure 106/41 L 106/41 L Pulse Oximetry 97 97 Oxygen Delivery Method BMI result Body Mass Index 23.0 Const General: cooperative, healthy appearing and no acute distress Orientation/consciousness: patient oriented x3 Limitations: no limitations HENMT Head: Yes normal to inspection and Yes atraumatic Ears: hearing grossly normal bilaterally General nose exam: Normal external nose present Face and sinus: Yes normal facial exam Eyes General: appearance normal, both eyes and all related structures Pupils: Equal, round and reactive pupils present EOM: EOMs intact bilaterally Neck Neck: Yes normal visual inspection and Yes no meningeal signs Resp Effort & Inspection: normal respiratory effort and no respiratory distress Auscultation: clear to auscultation bilaterally Cardio Rate: regular rate Heart sounds: S1 normal heart sound present and S2 normal heart sound present GI Inspection: Yes normal to inspection Palpation (GI): Soft to palpation, nontender, no guarding and not rigid General: Yes no CVA tenderness Back/Spine/Pelvis Back: no CVA tenderness Skin Rashes: no rashes Wounds: no wounds Neuro General: patient oriented x3, tone normal and no meningeal signs Cranial nerves: Yes CN's II-XII intact bilaterally and Yes Equal, round and reactive pupils present Gait exam (Neuro): Normal gait present Extrem General: Yes normal to inspection Course Course Course Narrative: -labs reassuring. Ethanol 144. Tox screen positive for THC. UA negative >0943--patient reports mild symptomatic improvement. Tolerating p.o. in the ED. Safe for discharge at this time Results discussed with patient including worrisome signs and symptoms and strict return precautions, and when to return to the emergency department. They verbalized understanding and feel safe for discharge at this time. Medical Decision Making Medical Decision Making MDM Narrative: 23-year-old male with no significant past medical history presenting to the ED via EMS complaining of ETOH intoxication, nausea, and vomiting. On exam vital signs stable, NAD, nontoxic appearing, abdomen soft/nontender. Concern for ETOH abuse/misuse vs metabolic abnormalities vs gastroenteritis or possible food poisoning. Lower suspicion for appendicitis/diverticulitis, colitis, pancreatitis or cholecystitis/lithiasis without tenderness on exam. No evidence of withdrawal at this time Plan: Labs, UA, tox screen, IVF, symptomatic remedies, p.o. challenge, re-evaluate Please refer to course for remaining clinical decision making, interpretation of labs/imaging results, and discussions with consultants and/or family members. Differential Diagnosis Differential Diagnoses: The differential diagnosis associated with the presentation includes As above Lab Data [facility] Lab Attestation statement: I reviewed the patient's lab results. 04/18/24 04:26 04/18/24 04:26 Labs: Lab Results 04/18/24 04/18/24 Range/Units 04:26 07:15 WBC 6.4 (4.8-10.8) X10*3/uL RBC 4.48 L (4.60-5.80) X10*6/uL Hgb 13.1 L (14.0-18.0) g/dl Hct 37.8 L (42.0-52.0) % MCV 84.4 (80.0-98.0) fL MCH 29.2 (27.0-33.0) pg MCHC 34.7 (31.0-36.0) g/dl RDW 13.1 (11.0-16.0) % Plt Count 276 (160-400) X10*3/uL MPV 8.9 L (9.4-12.4) fL Immature Gran % (Auto) 0.2 (0.0-0.4) % Neut % (Auto) 58.1 (45-73) % Lymph % (Auto) 31.7 (20-40) % [place] % (Auto) 7.0 (2-11) % Eos % (Auto) 2.5 (0-4) % Baso % (Auto) 0.5 (0-2) % Lymph # (Auto) 2.0 (1.2-4.9) X10*3/uL [place] # (Auto) 0.5 (0.1-1.2) X10*3/uL Eos # (Auto) 0.2 (0.0-0.4) X10*3/uL Baso # (Auto) 0.0 (0.0-0.2) X10*3/uL Abs Immat Gran (auto) 0.01 (0.00-0.03) X10*3/uL Absolute Neuts (auto) 3.7 (2.0-8.3) x10*3/uL Absolute Nucleated RBC 0.000 (0.0-0.012) X10*3/uL Nucleated RBC % (auto) 0.0 (0.0-0.2) /100WBC Sodium 145 (135-145) mmol/L Potassium 3.7 (3.3-5.1) mmol/L Chloride 108 (96-108) mmol/L Carbon Dioxide 25 (22-29) mmol/L Anion Gap 16 (12-20) BUN 6 L (9-16) mg/dL Creatinine 0.81 (0.5-1.4) mg/dL Estim Creat Clear Calc 145.5 Estimated GFR > 60 Random Glucose 96 (60-115) mg/dL Calcium 9.1 D (8.4-10.2) mg/dL Magnesium 2.2 (1.6-2.6) mg/dL Total Bilirubin 0.2 (0.0-1.0) mg/dL AST 25 (5-37) U/L ALT 21 (0-40) U/L Alkaline Phosphatase 66 (39-117) U/L Total Protein 7.3 (6.5-8.0) g/dL Albumin 4.6 (3.5-5.0) g/dL Lipase 8 (8-78) U/L Urine Color Yellow Urine Appearance Clear Urine pH 8.0 (5.0-9.0) Ur Specific [place] 1.010 (1.005-1.025) Urine Protein Negative (Neg-Trace) mg/dL Urine Glucose (UA) Negative (Negative) mg/dL Urine Ketones Negative (Negative) mg/dL Urine Blood Negative (Negative) Urine Nitrite Negative (Negative) Ur Leukocyte Esterase Negative (Negative) Urine Opiates Screen Not Detected (Not Detect) Ur Buprenorphine Scrn Not Detected (Not Detect) ng/mL Ur Oxycodone Screen Not Detected (Not Detect) ng/mL Urine Methadone Screen Not Detected (Not Detect) ng/mL Urine Fentanyl Screen Not Detected (Not Detect) Ur Barbiturates Screen Not Detected (Not Detect) Ur Phencyclidine Scrn Not Detected (Not Detect) Ur Amphetamines Screen Not Detected (Not Detect) U Benzodiazepines Scrn Not Detected (Not Detect) Urine Cocaine Screen Not Detected (Not Detect) U Marijuana (THC) Screen POSITIVE H (Not Detect) Ethyl Alcohol 144 mg/dL Radiology Impression Discussion of test interpretation with radiology: I have reviewed the radiologist's reading. External Record Review External record reviewed: Inpatient record, Office record, Outpatient record, Prior outpatient labs, Prior outpatient radiology, Primary care record and Outside ED record Tests considered The following testing was considered but not selected: As above Prescription Management I considered prescription management with: Pain Medication Chronic Conditions Patient?s care impacted by: Other Social Determinants Patient?s care significantly limited by Social Determinants of Health including: Alcoholism and drug addiction in family and Other Social Determinant of Health Medications Administered Discontinued Medications Generic Name Dose Route Start Last Admin Trade Name Freq PRN Reason Stop Dose Admin Famotidine 20 mg 04/18/24 04:15 04/18/24 04:32 Famotidine/Pf 20 Mg/2 Ml Vial IVPUSH 04/18/24 04:16 20 mg ONCE ONE Administration Sodium Chloride 1,000 mls @ 999 mls/hr 04/18/24 04:15 04/18/24 06:03 Ns IV 04/18/24 05:15 Infused .Q1H1M ONE Infusion Sodium Chloride 1,000 mls @ 999 mls/hr 04/18/24 07:00 04/18/24 08:37 Ns IV 04/18/24 08:00 Infused .Q1H1M DENI Infusion Ketorolac Tromethamine 15 mg 04/18/24 06:56 04/18/24 08:35 Ketorolac Tromethamine 15 Mg/Ml Vial IVPUSH 04/18/24 06:57 15 mg ONCE ONE Administration Metoclopramide HCl 10 mg 04/18/24 06:56 04/18/24 08:35 Metoclopramide Hcl 10 Mg/2 Ml Vial IVPUSH 04/18/24 06:57 10 mg ONCE ONE Administration Ondansetron HCl 4 mg 04/18/24 04:15 04/18/24 04:32 Ondansetron Hcl 4 Mg/2 Ml Vial IVPUSH 04/18/24 04:16 4 mg ONCE ONE Administration Discharge Plan Discharge Clinical Impression: Alcohol abuse Patient Disposition: Home, Self-Care Instructions: Abuse of Alcohol (DC) Additional Instructions: Please avoid alcohol and drug use this can kill you Follow up with her doctor. If her symptoms persist or worsen, you are unable to eat or drink have persistent nausea/vomiting return to the ED Prescriptions: No Action naproxen 500 mg tablet 500 mg PO BID PRN (Reason: pain) 30 Days Qty: 60 1RF melatonin 3 mg tablet 3 mg PO BEDTIME PRN (Reason: sleep) 30 Days Qty: 30 3RF Referrals: Wilfred Kelley MD [Primary Care Provider] - 3 days Interventions: ED Discharge Assessment Last Done: 04/18/24 10:03 Discharge Date/Time: 04/18/24 10:04 Print Language: Czech
[2024-04-18] MEDS: Ketorolac Tromethamine 15 MG/ML VIAL IVPUSH (08:35)
[2024-04-18] MEDS: Metoclopramide HCl 10 MG/2 ML VIAL IVPUSH (08:35)
[2024-04-18 10:00] VITALS: BP 106/41; PULSE 64; RESP 18; TEMP 36.7; O2SAT 97
[2024-04-18 10:03] VITALS: BP 106/41; PULSE 64; RESP 18; TEMP 36.7; O2SAT 97
== END 2024-04-18 10:04 | disposition home or self-care (01) ==
PROVIDERS: Internal Medicine; Physician Assistant; Emergency Provider Student in an Organized Health Care Education/Training Program; PCP Family Medicine
DX: F10.129 Alcohol abuse with intoxication, unspecified (principal); Y90.6 Blood alcohol level of 120-199 mg/100 ml; R11.2 Nausea with vomiting, unspecified
CPT/HCPCS: 36415; 80053; 80307; 81003; 83690; 83735; 85025; 96361; 96374; 96375; 99285; J1885; J2405; J2765

== ENCOUNTER 2024-10-31 02:48 | Emergency (ER) | payer OTHER, SELFPAY ==
[2024-10-31 02:51] VITALS: BP 110/72; PULSE 52; O2SAT 100
[2024-10-31 02:54] VITALS: BP 102/45; PULSE 53; RESP 16; TEMP 36.8; O2SAT 98; BMI 28.7
--- NOTE | 2024-10-31 03:10 | ECG_ITS ---
Test Reason : DIZZINESS Blood Pressure : */* mmHG Vent. Rate : 55 BPM Atrial Rate : 55 BPM P-R Int : 144 ms QRS Dur : 126 ms QT Int : 436 ms P-R-T Axes : * 63 36 degrees QTcB Int : 417 ms Poor data quality, interpretation may be adversely affected Sinus bradycardia Likely normal EKG Abnormal ECG No previous ECGs available Referred By: Lucia Romero Electronically Signed By: CRISTINE PEREZ
--- NOTE | 2024-10-31 03:12 | ED_ITS ---
HPI - General Adult General Chief complaint: Dizziness Stated complaint: ETOH Time Seen by Provider: 10/31/24 02:58 Source: patient and EMS Mode of arrival: EMS Limitations: no limitations History of Present Illness ED Provider: Dr. Lucia Romero HPI narrative: Patient comes to the emergency room complaining of a syncopal episode. Patient states that earlier today he was here with friends, they had a bit of alcohol to drink, smoke marijuana. Then the whole group of friends went to it dinner at then is. Patient states that after he finished his dinner, patient vomited to a table and then fell to the ground on his knees. Patient's friends were elbow to catch him before he hit the ground. Patient states that he has no history of syncope or seizures. Patient denies being on blood thinners. Denies any chest pain or shortness of breath. Patient states that this time he is starting to feel a bit better. Related Data Previous Rx's ?Medication ?Instructions ?Recorded melatonin 3 mg tablet 3 mg PO BEDTIME PRN sleep 30 days 02/21/23 #30 tabs naproxen 500 mg tablet 500 mg PO BID PRN pain 30 da ys #60 01/17/24 tabs Allergies Allergy/AdvReac Type Severity Reaction Status Date / Time No Known Allergies Allergy Verified 10/31/24 03:14 Review of Systems 2 Review of Systems: Constitutional : No Weight loss, No Fever, No Chills, No Night Sweats, No Fatigue, No Malaise ENT/Mouth : No Hearing loss, No Ear Pain, No Nasal Congestion, No Sinus Pain, No Hoarseness, No sore throat, No Rhinorrhea, No Swallowing Difficulty Eyes: No Eye Pain, No Swelling, No Redness, No Foreign Body, No Discharge, No Vision Changes Cardiovascular : No Chest Pain, No SOB, No Dyspnea on Exertion, No Orthopnea, No Edema, No Palpitations Respiratory : No Cough, No Sputum, No Wheezing, No Smoke Exposure, No Dyspnea Gastrointestinal : No Nausea, No Vomiting, No Diarrhea, No Constipation, No abdominal Pain, No Hematochezia, No Melena Genitourinary : no irregular bleeding, No Dysuria, No Urinary Frequency, No Hematuria, No Urinary Incontinence, No Urgency, No Flank Pain, No Urinary Flow Changes, No Hesitancy Musculoskeletal : No joint pain, No Myalgias, No Joint Swelling Skin : No Skin Lesions, No rash Neuro : No Weakness, No Numbness, No Paresthesias, complaining of 1 episode of loss of consciousness, no head Psych : No Anxiety/Panic, No Depression, No SI/HI/AH/VH, admits that earlier today he had some alcohol, THC Heme/Lymph: No Bruising, No Bleeding,No Lymphadenopathy Endocrine : No Polyuria, No Polydipsia, No Temperature Intolerance [facility] Past Medical History Medical History No pertinent past medical history Surgical History No pertinent past surgical history Family History Family History Father High blood pressure High cholesterol Social History Social History Housing: House Alcohol intake: current Alcohol intake frequency: a few times a month Patient Tobacco Use Status: Never used Tobacco e-Cigarette/Vaping Use: Never Used Substance Use Type: Marijuana Advance Directives: No Do you have a plan to hurt others: No Plan service: No Current occupational status: employed Current occupation: [employer] Current occupational exposures/hazards: No Cognitive needs: No Hearing needs: No Vision needs: No Physical Exam ED Vital Signs: Vital Signs - 24 hr 10/31/24 02:54 10/31/24 03:14 10/31/24 03:16 Temperature 98.3 F Pulse Rate 53 54 60 Respiratory Rate 16 Blood Pressure 102/45 L 102/45 L 93/58 L Pulse Oximetry 98 Oxygen Delivery Method Room Air 10/31/24 03:17 Temperature Pulse Rate 59 Respiratory Rate Blood Pressure 99/58 L Pulse Oximetry Oxygen Delivery Method BMI result Body Mass Index 28.7 Const Other: Appearance: Alert. Oriented X3. No acute distress. Seems a bit drowsy, but able to hold a coherent conversation Eyes: Pupils equal, round and reactive to light. ENT: Pharynx normal. Neck: Normal inspection. Neck supple. No lymph nodes noted. No crepitus CVS: Normal heart rate and rhythm. Pulses normal. Normal S1 and S2 Respiratory: No respiratory distress. Breath sounds normal. No Wheezing. No rales Abdomen: Soft and nontender. No rigidity. No distention. Skin: Skin warm and dry. Normal skin color. Normal skin turgor. Extremities: No lower extremity edema. No Lacerations. No Rash Neuro: Oriented X 3. No motor deficit. No sensory deficit. Moving all extremities. No slurred speech. CN 2 through 12 grossly intact Psych: calm, cooperative, normal affect Course Course Course Narrative: Patient admits that earlier today he had some alcohol, used THC, then had a syncopal episode which had never happened before. Denies chest pain or shortness of breath. All of patient's labs, EKG pending. Patient denies hitting his head Medications Administered Discontinued Medications Generic Name Dose Route Start Last Admin Trade Name Freq PRN Reason Stop Dose Admin Sodium Chloride 1,000 mls @ 999 mls/hr 10/31/24 03:30 10/31/24 04:52 Ns IV 10/31/24 04:30 Infused .Q1H1M DENI Infusion Medical Decision Making Medical Decision Making [facility] Narrative: My interpretation of EKG: Normal sinus rhythm, heart rate 55, no ST segment depression or elevation, no T-wave inversion, QTC 417 My interpretation of labs: No significant abnormality in patient's hematology and chemistry, normal LFTs, normal D-dimer, ETOH negative, urine toxicology pending. Orthostatic vitals negative When patient arrived, patient's blood pressure was a bit soft, in the high 90s systolic/low 100s. Patient received 1 L of normal saline. It is possible that patient was dehydrated. Otherwise, at this time patient feels better. I discussed with the patient that he continues having syncopal episodes, he may be a good candidate for a Holter monitor evaluation. Differential Diagnosis Differential Diagnoses: The differential diagnosis associated with the presentation includes (Orthostatic hypotension, dehydration, polysubstance abuse) Lab Data [facility] Lab Attestation statement: I reviewed the patient's lab results. 10/31/24 03:29 10/31/24 03:29 Labs: Lab Results 10/31/24 10/31/24 10/31/24 Range/Units 03:12 03:29 05:34 WBC 10.0 (4.8-10.8) X10*3/uL RBC 4.61 (4.60-5.80) X10*6/uL Hgb 13.4 L (14.0-18.0) g/dl Hct 38.8 L (42.0-52.0) % MCV 84.2 (80.0-98.0) fL MCH 29.1 (27.0-33.0) pg MCHC 34.5 (31.0-36.0) g/dl RDW 12.6 (11.0-16.0) % Plt Count 292 (160-400) X10*3/uL MPV 8.7 L (9.4-12.4) fL Immature Gran % (Auto) 0.5 H (0.0-0.4) % Neut % (Auto) 56.1 (45-73) % Lymph % (Auto) 32.6 (20-40) % [place] % (Auto) 8.4 (2-11) % Eos % (Auto) 1.8 (0-4) % Baso % (Auto) 0.6 (0-2) % Lymph # (Auto) 3.3 (1.2-4.9) X10*3/uL [place] # (Auto) 0.8 (0.1-1.2) X10*3/uL Eos # (Auto) 0.2 (0.0-0.4) X10*3/uL Baso # (Auto) 0.1 (0.0-0.2) X10*3/uL Abs Immat Gran (auto) 0.05 H (0.00-0.03) X10*3/uL Absolute Neuts (auto) 5.6 (2.0-8.3) x10*3/uL Absolute Nucleated RBC 0.000 (0.0-0.012) X10*3/uL Nucleated RBC % (auto) 0.0 (0.0-0.2) /100WBC D-Dimer High Sensitivty < 150 NG/ML Sodium 142 (135-145) mmol/L Potassium 3.4 (3.3-5.1) mmol/L Chloride 104 (96-108) mmol/L Carbon Dioxide 27 (22-29) mmol/L Anion Gap 14 (12-20) BUN 14 (9-16) mg/dL Creatinine 1.01 (0.5-1.4) mg/dL Estim Creat Clear Calc 135.5 Estimated GFR > 60 POC Glucose 129 H (60-115) mg/dL Random Glucose 78 (60-115) mg/dL Calcium 9.0 (8.4-10.2) mg/dL Magnesium 2.2 (1.6-2.6) mg/dL Total Bilirubin 0.3 (0.0-1.0) mg/dL Direct Bilirubin 0.1 (0.0-0.5) mg/dL AST 19 (5-37) U/L ALT 20 (0-40) U/L Alkaline Phosphatase 72 (39-117) U/L Total Protein 6.9 (6.5-8.0) g/dL Albumin 4.5 (3.5-5.0) g/dL Ethyl Alcohol < 10 mg/dL Independent Interpretation I performed an independent interpretation of an: EKG Critical Care Time Critical Care Time Critical Care Time: Yes Total Critical Care Time: 35 Attestation: I have personally provided critical care time. Time includes review of lab data, radiology results, discussion with consultants, and monitoring for potential decompensation. Intervention performed as documented. Discharge Plan Discharge Clinical Impression: Syncope Patient Disposition: Home, Self-Care Instructions: Syncope (ED) Additional Instructions: Please follow-up with your primary care physician tomorrow. If you have any worsening or new symptoms, please return to the emergency room or call 911 Prescriptions: No Action naproxen 500 mg tablet 500 mg PO BID PRN (Reason: pain) 30 Days Qty: 60 1RF melatonin 3 mg tablet 3 mg PO BEDTIME PRN (Reason: sleep) 30 Days Qty: 30 3RF Print Language: Portuguese
[2024-10-31 03:14] VITALS: BP 102/45; PULSE 54
[2024-10-31 03:16] VITALS: BP 93/58; PULSE 60
[2024-10-31 03:17] VITALS: BP 99/58; PULSE 59
[2024-10-31 03:21] LABS: Glucose, Whole Blood 129 mg/dL (60-115)
[2024-10-31 03:35] LABS: Basophils Absolute Auto 0.1 X10*3/uL (0.0-0.2); Basophils Percent Auto 0.6 % (0-2); Eosinophils Absolute Auto 0.2 X10*3/uL (0.0-0.4); Eosinophils Percent Auto 1.8 % (0-4); Hematocrit 38.8 % (42.0-52.0); Hemoglobin 13.4 g/dl (14.0-18.0); Imm Gran Abs Auto 0.05 X10*3/uL (0.00-0.03); Imm Gran Pct Auto 0.5 % (0.0-0.4); Lymphocytes Absolute Auto 3.3 X10*3/uL (1.2-4.9); Lymphocytes Percent Auto 32.6 % (20-40); MANUAL DIFF FLAG NO; Mean Corpuscular HGB Conc 34.5 g/dl (31.0-36.0); Mean Corpuscular Hemoglobin 29.1 pg (27.0-33.0); Mean Corpuscular Volume 84.2 fL (80.0-98.0); Mean Platelet Volume 8.7 fL (9.4-12.4); Monocytes Absolute Auto 0.8 X10*3/uL (0.1-1.2); Monocytes Percent Auto 8.4 % (2-11); Neutrophils Absolute Auto 5.6 x10*3/uL (2.0-8.3); Neutrophils Percent Auto 56.1 % (45-73); Platelet Count 292 X10*3/uL (160-400); Red Blood Count 4.61 X10*6/uL (4.60-5.80); Red Cell Distribution Width 12.6 % (11.0-16.0)
[2024-10-31 03:50] LABS: Alanine Aminotransferase 20 U/L (0-40); Albumin Level 4.5 g/dL (3.5-5.0); Alkaline Phosphatase 72 U/L (39-117); Anion Gap 14 (12-20); Aspartate Amino Transferase 19 U/L (5-37); Bilirubin Direct 0.1 mg/dL (0.0-0.5); Bilirubin Total 0.3 mg/dL (0.0-1.0); Blood Urea Nitrogen 14 mg/dL (9-16); Carbon Dioxide 27 mmol/L (22-29); Chloride 104 mmol/L (96-108); Creatinine Clr Calc Pharmacy 135.5; Estimated Glomerular Filt Rate > 60; Glucose Random 78 mg/dL (60-115); Magnesium 2.2 mg/dL (1.6-2.6); Potassium 3.4 mmol/L (3.3-5.1); Sodium 142 mmol/L (135-145); Total Protein 6.9 g/dL (6.5-8.0)
[2024-10-31] MEDS: 0.9 % Sodium Chloride 1,000 ML 999 ML IV (03:51)
[2024-10-31 03:57] LABS: Ethanol < 10 mg/dL
[2024-10-31 06:08] LABS: D Dimer High Sensitivity < 150 NG/ML
[2024-10-31 06:56] VITALS: BP 110/45; PULSE 60; RESP 16; TEMP 36.6; O2SAT 98
== END 2024-10-31 06:56 | disposition home or self-care (01) ==
PROVIDERS: Emergency Provider Emergency Medicine; PCP Family Medicine
DX: R55 Syncope and collapse (principal); F12.90 Cannabis use, unspecified, uncomplicated
CPT/HCPCS: 36415; 80048; 80076; 80307; 82947; 83735; 85025; 85379; 93005; 96360; 99284

== ENCOUNTER → 2024-10-31 03:10 | Outpatient (BNV) | payer OTHER, SELFPAY | PROVIDERS: Emergency Provider Emergency Medicine; PCP Family Medicine; Visit Provider Internal Medicine | DX: R00.1 Bradycardia, unspecified (principal) | CPT/HCPCS: 93010 ==